=== PATIENT | female | born 1985 | race Caucasian/White ===

== ENCOUNTER 2021-02-10 12:26 | Emergency (ER) | payer MEDICAID, SELFPAY ==
--- NOTE | ~2021-02-10 | XR_ITS ---
XR chest 2V DATE: 02/10/2021 13:26 INDICATION: Midsternal chest pain. Hypertension, hypercholesterolemia. TECHNIQUE: PA and lateral views COMPARISON: None FINDINGS: Normal heart size. No hilar or mediastinal enlargement. No pulmonary infiltrate or consolid ation, pleural effusion or pulmonary vascular congestion or pneumothorax. IMPRESSION: No active cardiopulmonary disease Reviewed, dictated and finalized at location A. [employer]
[2021-02-10 12:45] VITALS: BP 132/82; PULSE 87; RESP 18; TEMP 36.4; O2SAT 100
--- NOTE | 2021-02-10 12:51 | ECG_ITS ---
Measurements Intervals [place] Rate: 80 P: 11 MO: 155 QRS: 53 QRSD: 83 T: 29 QT: 377 QTc: 437 Interpretive Statements SINUS RHYTHM MINIMAL Q WAVES- INFERIOR LEADS BORDERLINE ECG Electronically Signed On 02-10-2021 14:18:14 [employer] [employer] by Saad Gilbert D.O.
[2021-02-10 13:23] LABS: Basophils Absolute Auto 0.1 K/mm3 (0.0-0.1); Basophils Percent Auto 0.7 % (0.2-1.2); Eosinophils Absolute Auto 0.1 K/mm3 (0-0.3); Eosinophils Percent Auto 1.3 % (0-4.4); Hematocrit 40.6 % (37.0-47.0); Hemoglobin 13.8 g/dL (12.0-15.0); Immature Granulocyte Absolute 0.04 K/mm3 (0.00-0.031); Immature Granulocyte Percent A 0.4 % (0-0.5); Lymphocytes Absolute Auto 3.64 K/mm3 (0.9-3.2); Lymphocytes Percent Auto 35.2 % (18.3-44.2); Mean Corpuscular Hemoglobin 28.8 pg (26-34); Mean Corpuscular Volume 84.8 fl (80-100); Mean Platelet Volume 10.2 fl (7.4-10.4); Monocytes Absolute Auto 0.7 K/mm3 (0.1-0.6); Monocytes Percent Auto 6.4 % (2.6-8.5); Neutrophils Absolute Auto 5.8 K/mm3 (1.3-6.7); Platelet Count Result 324 k/mm3 (150-375); Red Blood Count 4.79 M/mm3 (4.2-5.4); Red Cell Distribution Width 13.4 % (11.5-14.5); White Blood Count 10.3 K/mm3 (4.5-10.0)
[2021-02-10 13:33] LABS: INR 0.9; Prothrombin Time 12.3 Seconds (11.1-14.7)
[2021-02-10 13:34] LABS: Partial Thromboplastin Time 28.4 SECONDS (22.3-36.8)
[2021-02-10 13:35] LABS: Alanine Aminotransferase 41 U/L (4-35); Albumin Level 5.2 g/dL (3.5-5.1); Alkaline Phosphatase 89 U/L (38-126); Anion Gap 13 mmol/L (8-16); Aspartate Amino Transferase 34 U/L (14-36); Bilirubin,Total 0.3 mg/dL (0.2-1.3); Blood Urea Nitrogen 12 mg/dL (7-17); Calcium 10.2 mg/dL (8.4-10.2); Carbon Dioxide 21 mmol/L (22-30); Chloride 102 mmol/L (98-107); Estimated CRCL calculation 101 ml/min; Estimated Glomerular Filt Rate > 60; Glucose 100 mg/dL (65-110); Lipase 63 U/L (23-300); Potassium 4.3 mmol/L (3.4-5.0); Sodium 136 mmol/L (137-145)
[2021-02-10 13:47] LABS: Troponin I < 0.012 ng/mL (0.000-0.034)
[2021-02-10 15:52] VITALS: BP 120/82; PULSE 88; RESP 16; TEMP 36.8; O2SAT 99
--- NOTE | 2021-02-10 19:11 | PC.NURSE ---
Assumed care of pt from waiting room. Pt reports she developed pain in her right axilla this morning that radiated down to her right elbow. States the pain then radiated into her right chest so she called EMS after 20 minutes. States the right sided CP lasted another 30 minutes after that, then completely subsided. However, her right axilla pain continues. Pt reports medical hx of bipolar, HTN, and high cholesterol, reports compliance with all meds. Second troponin being drawn now.
[2021-02-10 19:36] LABS: Troponin I < 0.012 ng/mL (0.000-0.034)
--- NOTE | 2021-02-10 20:03 | ED.CHESTPAIN ---
HPI - Chest Pain General Chief Complaint: Chest Pain Stated Complaint: chest pain Time Seen by Provider: 02/10/21 19:03 Source: patient Mode of arrival: ambulatory Limitations: no limitations History of Present Illness HPI narrative: Patient 35-year-old female with hypertension presenting with chief complaint of pain in her right axilla that lasted for 20 minutes then radiated across her chest for an additional 30 minutes so she called EMS to bring her to the ER. Patient reports that she is washing her hands in the sink when the symptoms began. Patient denies any syncope, dizziness, shortness of breath, nausea, vomiting or cough. Patient denies any fever. Patient denies any shortness of breath accompanying the discomfort. Patient denies any history of UT or stroke. Patient reports a discomfort likely worsens with movement of her arm. Patient has not taken anything to alleviate her discomfort. Patient reports there is not any pain radiating across her chest but still discomfort to her right axilla presently. Related Data Home Medications Medication Instructions Recorded Confirmed Lamictal 02/10/21 Latuda 02/10/21 WelChol 02/10/21 famotidine 02/10/21 gabapentin 02/10/21 lisinopril 02/10/21 pravastatin 02/10/21 Allergies Allergy/AdvReac Type Severity Reaction Status Date / Time No Known Allergies Allergy Verified 02/10/21 19:02 Review of Systems Review of Systems: CONSTITUTIONAL: Denies fever, chills, or sweats. EYES: Denies visual changes, redness, or discharge. ENT: Denies rhinorrhea, congestion, sore throat, or otalgia. CARDIOVASCULAR: Resolved chest pain, denies palpitations, or edema. RESPIRATORY: Denies cough or dyspnea. GASTROINTESTINAL: Denies abdominal pain, nausea, vomiting, or diarrhea. GENITOURINARY: Denies dysuria or hematuria. SKIN: Denies rash or itching. MUSCULOSKELETAL: Reports right axillary pain denies back pain, joint pain, or myalgia. NEUROLOGIC: Denies headache, numbness, dizziness, or weakness. PSYCHIATRIC: Denies anxiety or depression. Exam Narrative: GENERAL: Well-appearing, well-nourished, and in no acute distress. Smiling and talking normally. Not diaphoretic. HEAD: Normocephalic, atraumatic. EYES: PERRLA and EOMI. CHEST: Clear to auscultation. No respiratory distress. No wheezes rales or rhonchi. Not tachypneic. HEART: Regular rate and rhythm. EXTREMITIES: Discomfort to the right axillary area. No pain with palpation across the chest wall. No abnormal masses palpated presently. Normal range of motion. No edema. SKIN: Warm, dry, no rash. NEURO: No focal deficits. Alert and oriented x3. PSYCH: Normal mood and affect. Course Vital Signs Vital signs: Vital Signs Temperature 97.6 F 02/10/21 12:45 Pulse Rate 87 02/10/21 12:45 Respiratory Rate 18 02/10/21 12:45 Blood Pressure 132/82 02/10/21 12:45 Pulse Oximetry 100 02/10/21 12:45 Temperature 98.2 F 02/10/21 15:52 Pulse Rate 88 02/10/21 15:52 Respiratory Rate 16 02/10/21 15:52 Blood Pressure 120/82 02/10/21 15:52 Pulse Oximetry 99 02/10/21 15:52 MDM - Chest Pain MDM Narrative Medical decision making narrative: Patient is not hypoxic or tachypneic. Patient is not having pain to her chest at this time. Patient's EKG are within normal limits. Patient's troponin and delta troponin are negative. Patient chest x-ray is without abnormal findings. Patient has been given Toradol for musculoskeletal pain. Patient denies chance of due to tubal ligation. Patient has been instructed to follow-up with her primary care symptoms persist. Patient has been instructed to return to emergency department if she develops pain in her chest, palpitations, diaphoresis or any other emergent symptoms. Lab Data Result diagrams: 02/10/21 13:17 02/10/21 13:17 Labs: Lab Results 02/10/21 02/10/21 02/10/21 Range/Units 13:17 13:17 13:17 WBC 10.3 H (4.5-10
[2021-02-10 21:44] LABS: D Dimer 0.27 ug/mL (<0.48)
[2021-02-10 21:49] LABS: Troponin I < 0.012 ng/mL (0.000-0.034)
[2021-02-10] MEDS: KETOROLAC 30 MG/ML VIAL (*BKC) IM (21:55)
[2021-02-10 22:02] VITALS: BP 129/87; PULSE 88; RESP 15; O2SAT 100
== END 2021-02-10 22:04 | disposition home or self-care (01) ==
PROVIDERS: Emergency Medicine; Physician Assistant; Emergency Provider Emergency Medicine
DX: M79.621 Pain in right upper arm (principal); I10 Essential (primary) hypertension; R94.31 Abnormal electrocardiogram [ECG] [EKG]
CPT/HCPCS: 36415; 71046; 80053; 83690; 84484; 85025; 85380; 85610; 85730; 93005; 96372; 99284; J1885